=== PATIENT | female | born 1950 | race Caucasian/White ===

== ENCOUNTER → 2016-09-20 | Outpatient (CLI) | payer MEDICARE, OTHER | LOC: KOH-I 12:42 | DX: S22.42XD Multiple fractures of ribs, left side, subsequent encounter for fracture with routine healing (principal) | CPT/HCPCS: 71020 ==

== ENCOUNTER → 2020-06-07 | Outpatient (CLI) | payer MEDICARE | LOC: KOH-I 13:56 | DX: M25.542 Pain in joints of left hand (principal); M19.042 Primary osteoarthritis, left hand | CPT/HCPCS: 73130 ==